=== PATIENT | female | born 1970 | race Caucasian/White ===

== ENCOUNTER 2023-09-29 11:51 | Outpatient (OUT) | payer OTHER, SELFPAY ==
--- NOTE | 2023-09-29 11:53 | CT_ITS ---
The [address] [address] Patient Name: DEVENDRA SALINAS MRN: [id number] date: 1970 Sex: F Assigned Patient Location: CT Current Patient Location: CT Accession/Order Number: [id number] Exam Date: 09/29/2023 13:00 Report Date: 09/29/2023 13:19 At the request of: DIMAS VENTURA Procedure: CT abdomen pelvis wo con EXAM: CT abdomen pelvis wo con HISTORY: Rectal Bleeding COMPARISON: None. TECHNIQUE: Axial CT images were obtained of the abdomen and pelvis without intravenous contrast. Multiplanar reconstructions were performed. ABDOMEN/PELVIS FINDINGS: Lower Chest: Unremarkable. Liver: Normal nonenhanced appearance and contour. Biliary/Gallbladder: Unremarkable. Pancreas: Unremarkable. Spleen: Unremarkable. Adrenal Glands: Unremarkable. Kidneys: Unremarkable. Gastrointestinal/Peritoneum: No acute abnormality. Mild colonic diverticulosis is present. The appendix is unremarkable. No free air or free fluid. Vascular: Mild scattered atherosclerotic calcifications are present. Lymph Nodes: No enlarged lymph nodes by CT size criteria. Pelvic Organs: Unremarkable. Bladder: Unremarkable. Bones: No acute osseous abnormality. A right total hip arthroplasty is present. Soft tissues: Unremarkable. CT/CT abdomen pelvis wo con IMPRESSION: 1. No acute abnormality of the abdomen and pelvis. 2. Mild colonic diverticulosis. Electronically authenticated by: SHARONDA TATE Date: 09/29/2023 13:19
== END 2023-09-29 11:52 | disposition home or self-care (01) ==
LOC: CT 11:51
PROVIDERS: PCP Family Medicine; Visit Provider Family Medicine
DX: K62.5 Hemorrhage of anus and rectum (principal); R10.84 Generalized abdominal pain; K57.90 Diverticulosis of intestine, part unspecified, without perforation or abscess without bleeding
CPT/HCPCS: 74176